=== PATIENT | female | born 1990 | race Caucasian/White ===

== ENCOUNTER 2017-02-09 15:54 | Emergency (ER) | payer OTHER ==
[~2017-02-09] VITALS: Ht 162.6 cm; Wt 63.0 kg
[2017-02-09 18:02] LABS: BASO % 0.3 % (0.0-1.0); EOS # 0.2 K/mm3 (0.0-0.50); EOS % 2.6 % (0.0-3.0); LARGE UNSTAINED CELL # 0.1 K/mm3 (0.0-0.4); LARGE UNSTAINED CELL % 0.8 % (0.0-4.0); LYMPH # 1.8 K/mm3 (1.5-6.5); LYMPH % 26.6 % (24.0-44.0); MEAN CORPUSCULAR HGB CONC 35.7 g/dl (32.0-36.5); MEAN CORPUSCULAR VOLUME 92.5 fl (80.0-96.0); MONO # 0.2 K/mm3 (0.0-0.8); MONO % 3.6 % (0.0-5.0); NEUTROPHILS # 4.3 K/mm3 (1.8-7.7); NEUTROPHILS % 66.1 % (36.0-66.0); PLATELET COUNT, AUTOMATED 256 k/mm3 (150-450); RED CELL DISTRIBUTION WIDTH 11.5 % (11.5-14.5); WHITE BLOOD COUNT 6.6 K/mm3 (4.0-10.0)
--- NOTE | 2017-02-09 18:40 | REPUSA ---
CLINICAL HISTORY: Bleeding. TECHNIQUE: Realtime sonographic images were obtained in multiple projections. COMMENTS: LMP - 12/09/16 GA BY LMP - 8weeks 6 days G - 1 Uterine size - 7.9 cm CC 3.7 cm AP 5.4 cm TRV Gestational sac size, A - 13.9 mm CC 5.7 mm AP 7.7 mm TRV; B - 10.9 cc 8.0 AP 7.7 TRV Mean sac size - 9.1 mm = 5 weeks and 5 days Right ovary - 3.0 cm CC 2.5 cm AP 7.1 cm TRV. Contains a heterogeneous structure measuring 1.7 x 1.5 x 1.5 cm ; most compatible with hemorrhagic corpus luteum. Left ovary - 2.4 cm CC 1.2 cm AP 1.0 cm TRV IMPRESSION: Two gestational sacs seen in KATIE/LYNETTE. Each measuring 5W5D. No pole seen. Most compatible wit h missed twin . Please correlate with beta HCG. Consider short term follow up. Thank you for your kind referral of this patient. We appreciate the opportunity to participate in th is patient's care.
[2017-02-09 19:22] VITALS: BP 119/69
== END 2017-02-09 19:23 | disposition home or self-care (01) ==
LOC: M ED 16:53
DX: O20.0 Threatened abortion (principal); O30.031 Twin pregnancy, monochorionic/diamniotic, first trimester; Z3A.01 Less than 8 weeks gestation of pregnancy

== ENCOUNTER → 2017-02-11 | Outpatient (CLI) | payer OTHER | LOC: M LAB 11:02 | PROVIDERS: ATTEND Physician Assistant Surgical | DX: O20.9 Hemorrhage in early pregnancy, unspecified (principal); O30.001 Twin pregnancy, unspecified number of placenta and unspecified number of amniotic sacs, first trimester; Z3A.01 Less than 8 weeks gestation of pregnancy ==

== ENCOUNTER → 2017-03-14 | Outpatient (REF) | payer OTHER | LOC: M LABDRWAD 12:08 | PROVIDERS: ATTEND Obstetrics & Gynecology | DX: O03.9 Complete or unspecified spontaneous abortion without complication (principal) ==

== ENCOUNTER → 2017-03-24 | Outpatient (REF) | payer OTHER | LOC: M LABDRWAD 12:28 | PROVIDERS: ATTEND Obstetrics & Gynecology | DX: O03.9 Complete or unspecified spontaneous abortion without complication (principal) ==

== ENCOUNTER → 2017-04-02 | Outpatient (REF) | payer OTHER | LOC: M LABDRWAD 12:09 | PROVIDERS: ATTEND Obstetrics & Gynecology | DX: O03.9 Complete or unspecified spontaneous abortion without complication (principal) ==